=== PATIENT | female | born 1995 | race Asian ===

== ENCOUNTER 2021-05-10 01:08 | Emergency (ER) | payer OTHER ==
[~2021-05-10] VITALS: Ht 165.1 cm; Wt 81.8 kg
[2021-05-10 03:16] VITALS: BP 133/88; PULSE 100; TEMP 98
== END 2021-05-10 03:16 | disposition home or self-care (01) ==
LOC: COL.ER 01:08 → EDBD 01:09 → COL.ER 03:16
DX: S81.812A Laceration without foreign body, left lower leg, initial encounter (principal); F17.210 Nicotine dependence, cigarettes, uncomplicated; W01.198A Fall on same level from slipping, tripping and stumbling with subsequent striking against other object, initial encounter; Y92.838 Other recreation area as the place of occurrence of the external cause